=== PATIENT | male | born 1965 | race Caucasian/White ===

== ENCOUNTER → 2016-11-05 | Outpatient (CLI) | payer OTHER, BC ==
--- NOTE | 2016-11-05 11:59 | DIAGNOSTIC IMAGING REPORT ---
C-SPINE ROUTINE 4 OR 5 VIEWS CLINICAL HISTORY: C34.92 Squamous cell lung cancer, [id number] COMPARISON STUDY: No previous studies for comparison. FINDINGS: The prevertebral soft tissues are normal. No fractures or traumatic subluxations are visualized. No destructive lesions are evident. There are mild degenerative changes most pronounced the C3-4 level. There is minimal retrolisthesis of C3 on C4. IMPRESSION: Minor degenerative changes the C3-4 level. No fractures or destructive lesions are visualized Electronically signed by: Nicholas Lepe M.D. 11/05/2016 11:57 AM Dictated Date/Time: 11/05/2016 11:56 AM
--- NOTE | 2016-11-05 12:01 | DIAGNOSTIC IMAGING REPORT ---
PELVIS 1 OR 2 VIEW ROUTINE CLINICAL HISTORY: C34.92 Squamous cell lung cancer, [id number] COMPARISON STUDY: No previous studies for comparison. FINDINGS: No fractures are visualized. No destructive lesions are evident. There are minor degenerative changes within the hips. IMPRESSION: No evidence of fracture. No destructive lesions are visualized on conventional radiographic imaging Electronically signed by: Nicholas Lepe M.D. 11/05/2016 11:59 AM Dictated Date/Time: 11/05/2016 11:58 AM
== END | disposition home or self-care (01) ==
LOC: C.RAD1850 11:29
PROVIDERS: ATTEND Family Medicine
DX: C34.92 Malignant neoplasm of unspecified part of left bronchus or lung (principal); T14.8 Other injury of unspecified body region; V49.49XA Driver injured in collision with other motor vehicles in traffic accident, initial encounter

== ENCOUNTER → 2017-10-07 | Outpatient (CLI) | payer BC | END | disposition home or self-care (01) | LOC: C.LAB 09:44 | PROVIDERS: ATTEND Nutritionist | DX: R53.83 Other fatigue (principal) ==